=== PATIENT | male | born 1960 ===

== ENCOUNTER 2019-02-26 08:36 | Day surgery (SDC) | payer OTHER ==
[2019-02-25 10:23] VITALS: BMI 38.2
[~2019-02-26 08:36] MED LIST: DEXAMETHASONE SOD PHOSPHATE 10 MG/ML 1 ML VIAL IV ONE; HYDROmorphone 0.5 MG/0.5 ML SYRINGE IVP PRN; LACTATED RINGERS 1,000 ML IV SCH; MIDAZOLAM 2 MG/2 ML VIAL IV PRN; ONDANSETRON 4 MG/2 ML VIAL IVP ONE; SCOPOLAMINE 1.5MG/72HR PATCH TRANSDERM ONE; ceFAZolin 3 GM in SODIUM CHLORIDE 0.9% 100 ML IVPB ONE
[2019-02-26] MEDS ORDERED: fentaNYL (PF) 50 MCG/ML 2 ML AMP IV ONE (09:28)
[2019-02-26] MEDS ORDERED: LIDOCAINE 1% 20 ML VIAL (10MG/ML) FOR IV START INTRADERMA ONE (09:30)
[2019-02-26 09:40] VITALS: RESP 16; TEMP 98
--- NOTE | 2019-02-26 09:44 | P.ANPRN ---
Procedure Note - Anesthesia - Nerve Block Performed Left Supraclavicular Single Time Out Performed: Yes Date of Procedure: 02/26/19 Procedure Start Time: : Procedure Stop Time: :33 Location of Patient Procedure: PreOp Indication: Acute Post-Operative Pain, Analgesia, Dx/Pain Location, Requested by physician Sedation Type: Sedate with meaningful contact maintained Preparation: Sterile Prep Position: Supine Catheter: None Needle Types: On-Q Needle Gauge: 20 Technique: Ultrasound Injectate: 0.5% Ropivacaine (see comment for volume) Blood Aspirated: No Pain Paresthesia on Injection Noted: No Resistance on Injection: Normal Events: Uneventful and Well Tolerated (20 ml totaL)
[2019-02-26] MEDS ORDERED: LIDOCAINE 1% INJ 10MG/ML (20 ML MDV) ONE (10:00)
[2019-02-26] MEDS ORDERED: MIDAZOLAM 2 MG/2 ML VIAL ONE (10:00)
[2019-02-26] MEDS ORDERED: ROPIVACAINE 5 MG/ML 30 ML VIAL ONE (10:00)
[2019-02-26] MEDS ORDERED: PROPOFOL 10 MG/ML 20 ML VIAL IV ONE (10:00)
[2019-02-26] MEDS ORDERED: LIDOCAINE 2% INJ 20 MG/ML SQ ONE (10:14)
[2019-02-26] MEDS ORDERED: BUPIVACAINE (PF) 0.5% 30 ML VIAL SQ ONE (10:14)
--- NOTE | 2019-02-26 11:11 | OP ---
OPERATIVE REPORT DATE OF SURGERY: 02/26/2019. SURGEON: Keith Sams DO STUDENT DEVELOPMENT ADVISOR: Flores Beavers. PREOPERATIVE DIAGNOSES: Basal joint arthritis left thumb and left carpal tunnel syndrome. POSTOPERATIVE DIAGNOSES: Basal joint arthritis left thumb and left carpal tunnel syndrome. PROCEDURES: 1. Excision of trapezium with ligament reconstruction tendon interposition arthroplasty using the flexor carpi radialis tendon. 2. Left carpal tunnel release. PROCEDURE: The patient was taken to the Operative Suite after an axillary block was performed by the Department of Anesthesia in the holding area with good results. The involved arm was prepped and draped in the usual manner, elevated, exsanguinated and blood pressure tourniquet inflated to 250 mm of mercury. A volar incision was made over the palm of the hand using a Gama approach. The dissection was taken through the subcutaneous tissue bluntly to identify and to preserve sensory branches. The flexor carpi radialis tendon was initially identified and kept in view throughout the remainder of the procedure. The thenar muscles were then gently dissected off of the volar capsule and reflected ulnarly and distally. Longitudinal arthrotomy was then made into the trapezial metacarpal and scaphotrapezial joints. The trapezium was dissected sharply with a little traction on the thumb and care again, given to monitoring the position of the flexor carpi radialis. The trapezium was osteotomized and removed in piecemeal fashion using rongeur. Again, the flexor carpi radialis tendon was kept intact so as not to be harmed during this portion of the procedure. A drill hole was then made into the base of the first metacarpal, beginning with an awl and enlarged using drill bits and a large curette. A similar hole was drilled on the dorsal aspect of the base of the first metacarpal perpendicular to the plane of the nail bed. Attention was then turned to harvesting the flexor carpi radialis. Approximately 8 to 10 cm proximal to the wrist, small transverse incision was made and blunt dissection was taken through the subcutaneous tissue. The flexor carpi radialis tendon was identified and released to this level. It was retracted into the wrist wound with a gentle tug. A suspension sling arthroplasty was then performed along with ligament reconstruction of the deep volar ligament using the flexor carpi radialis tendon. The edge of the tendon was secured with suture. The suture was then passed into the base of the first metacarpal and brought out through the dorsal drill hole and brought back down upon itself and abductor pollicis longus tendons. It was secured in place with 3-0 PDS suture. It was then brought back around itself, back through the abductor pollicis longus tendons, and back down upon itself again and further secured with 3-0 PDS suture. Again, in this manner reconstruction of the deep volar ligament was accomplished as well as a suspension sling arthroplasty and natural tendon spacer for the joint. Next, a longitudinal incision was made along the ring finger ray distal to the wrist crease. Dissection was taken through the skin and subcutaneous tissue, initially sharp through the skin and then blunt through the subcutaneous tissue to ensure protection of any potential terminal transverse branches of the palmar cutaneous nerve. The palmar fascia was then incised under direct vision longitudinally exposing the transverse carpal ligament. The transverse carpal ligament also was incised under direct visualization. The median nerve was then reflected free of tenosynovium to ensure no adhesions. At this point, a slight hour glass constriction was noted of the median nerve beneath the transverse carpal ligament. Both wounds were again irrigated and were closed with running and interrupted 5-0 nylon suture. A soft bulky dressing was then applied including the volar plaster splint, immobilizing the wrist in neutral position and a thumb spica splint to the IP joint, immobilizing the thumb. The patient was then taken to the Recovery Room in satisfactory condition. ERNESTO / ANITAN: [id number] /
[2019-02-26 11:26] VITALS: BP 124/75; PULSE 75
== END 2019-02-26 11:57 | disposition home or self-care (01) ==
LOC: OR 08:36
PROVIDERS: ATTEND Orthopaedic Surgery Hand Surgery
DX: M18.9 Osteoarthritis of first carpometacarpal joint, unspecified (principal); G56.03 Carpal tunnel syndrome, bilateral upper limbs; M19.032 Primary osteoarthritis, left wrist; I10 Essential (primary) hypertension; K30 Functional dyspepsia; R51 Headache; M65.811 Other synovitis and tenosynovitis, right shoulder; M25.511 Pain in right shoulder; G89.29 Other chronic pain; K06.9 Disorder of gingiva and edentulous alveolar ridge, unspecified; E66.9 Obesity, unspecified; Z68.38 Body mass index [BMI] 38.0-38.9, adult; Z97.3 Presence of spectacles and contact lenses; Z87.891 Personal history of nicotine dependence; Z79.891 Long term (current) use of opiate analgesic; Z79.899 Other long term (current) drug therapy; Z90.49 Acquired absence of other specified parts of digestive tract
CPT/HCPCS: 25447; 25310; 64721; 64417; J2001 ×2; J2250; J1100; J0690; J2405; J3010; J2795; J2704

== ENCOUNTER 2022-12-19 11:00 | Day surgery (SDC) | payer OTHER ==
[~2022-12-19 11:00] MED LIST changes: -DEXAMETHASONE SOD PHOSPHATE 10 MG/ML 1 ML VIAL IV ONE; -HYDROmorphone 0.5 MG/0.5 ML SYRINGE IVP PRN; +LIDOCAINE 1% (10MG/ML) FOR IV START INTRADERMA PRN; -MIDAZOLAM 2 MG/2 ML VIAL IV PRN; -ONDANSETRON 4 MG/2 ML VIAL IVP ONE; +Pre Op ABX Message 1 EACH MISC MISCELLANE ONE; -SCOPOLAMINE 1.5MG/72HR PATCH TRANSDERM ONE; -ceFAZolin 3 GM in SODIUM CHLORIDE 0.9% 100 ML IVPB ONE
[2022-12-19 11:24] VITALS: TEMP 98.4
[2022-12-19] MEDS ORDERED: DEXAMETHASONE SOD PHOSPHATE 4 MG/ML 1 ML VIAL IV ONE (11:30)
[2022-12-19] MEDS ORDERED: ONDANSETRON 4 MG/2 ML VIAL ONE (11:30)
[2022-12-19] MEDS ORDERED: ONDANSETRON 4 MG/2 ML VIAL IVP ONE (11:30)
[2022-12-19] MEDS ORDERED: GLYCOPYRROLATE 0.2 MG/ML 2 ML VIAL ONE (12:19)
[2022-12-19] MEDS ORDERED: MIDAZOLAM 2 MG/2 ML VIAL ONE (12:19)
[2022-12-19] MEDS ORDERED: KETAMINE 10 MG/ML 20 ML VIAL ONE (12:19)
[2022-12-19] MEDS ORDERED: fentaNYL (PF) 50 MCG/ML 2 ML AMP ONE (12:19)
[2022-12-19] MEDS ORDERED: PROPOFOL 10 MG/ML 20 ML VIAL IV ONE (12:19)
[2022-12-19] MEDS ORDERED: LIDOCAINE 1%-EPI 1:100,000 20 ML VIAL SQ ONE (12:33)
[2022-12-19] MEDS ORDERED: BUPIVACAINE (PF) 0.5% 30 ML VIAL SQ ONE (12:33)
[2022-12-19] MEDS ORDERED: LACTATED RINGERS 1,000 ML IV ONE (12:51)
[2022-12-19 14:41] VITALS: BP 116/70; PULSE 79; RESP 16
--- NOTE | 2022-12-22 19:32 | P.OP ---
Date of Procedure: 12/19/22 Preoperative Diagnosis: Right carpal tunnel syndrome Postoperative Diagnosis: same Procedure(s) Performed: right endoscopic carpal tunnel release Anesthesia: MAC Surgeon: Peri Avalos Estimated Blood Loss (ml): 1 Condition: stable Disposition: PACU Indications for Procedure: Renata has had long standing numbness and tingling in the median nerve distribution of his hand. It is keeping him up at night. EMG confirms carpal tunnel syndrome. He has had transient relief with injections but would like permanent relief. Description of Procedure: The patient, operative extremty, and procedure were confirmed in the preop area. After informed consent he was brought back to the OR. A local block was performed. The arm was prepped and draped. A formal timeout was performed and the tourniqeut inflated. A transverse incision was made just ulnar to the palmaris longus tendon. D issection was carried down to the forearm fascia. This was released proximally about a cm. The synovial scraper was then introduced into the carpal tunnel, followed by serial dilators. The cannula/camera was then inserted. The view showed that the transverse carpal ligament was well isolated without any aberrant soft tissue. The distal end of the ligament was identified and the knife was deployed. Under direct visualization, the transverse carpal ligament was divided in its entirety. The release was confirmed by reinserting the camera to show a gap between the two leaves of the ligament. Palpation with the synovial scraper revealed a well released carpal tunnel. The tourniquet was let down, hemostasis achieved, and the wound as closed with monocryl, skin glue, and a steristrip. It was dressed with telfa and tegaderm. Patient was aroused by the anesthesia team and brought back to pacu in stable condition.
== END 2022-12-19 14:45 | disposition home or self-care (01) ==
LOC: OR 11:00
PROVIDERS: ATTEND Orthopaedic Surgery Hand Surgery
DX: G56.01 Carpal tunnel syndrome, right upper limb (principal); I10 Essential (primary) hypertension; F10.90 Alcohol use, unspecified, uncomplicated; K21.9 Gastro-esophageal reflux disease without esophagitis; M19.90 Unspecified osteoarthritis, unspecified site; Z68.35 Body mass index [BMI] 35.0-35.9, adult; Z79.899 Other long term (current) drug therapy; Z90.49 Acquired absence of other specified parts of digestive tract; Z98.890 Other specified postprocedural states
CPT/HCPCS: 29848; J2250; J1100; J2405; J3010; J2704